=== PATIENT | male | born 1980 | race Asian ===

== ENCOUNTER 2025-08-08 06:11 | Emergency (ER) | payer OTHER ==
[2025-08-08] MEDS ORDERED: Ketorolac Tromethamine 30 MG (1 mL) VIAL ONE (06:30)
[2025-08-08] MEDS ORDERED: Orphenadrine Citrate 60 MG/2 ML VIAL ONE (06:31)
[2025-08-08] MEDS ORDERED: HYDROcodone/Acetaminophen 5/325 mg Tablet ONE (06:38)
== END 2025-08-08 07:09 | disposition home or self-care (01) ==
LOC: ERS 06:11
DX: S39.012A Strain of muscle, fascia and tendon of lower back, initial encounter (principal); X50.0XXA Overexertion from strenuous movement or load, initial encounter
CPT/HCPCS: 96372; 99283; J1885; J2360